=== PATIENT | male | born 1970 | race African-American/Black ===

== ENCOUNTER 2018-12-23 19:09 | Emergency (ER) | payer MEDICARE, MEDICAID ==
[~2018-12-23] VITALS: Ht 180.3 cm; Wt 68.0 kg
[2018-12-23 20:01] VITALS: BP 123/81
[2018-12-23 22:41] LABS: BASOPHILS % (AUTO) 0.6 % (0.0-2.0); EOSINOPHILS % (AUTO) 1.3 % (0.0-6.0); HEMATOCRIT 38 % (39-51); HEMOGLOBIN 12.9 g/dL (13.5-17.5); LYMPHOCYTES # (AUTO) 2.2 /CMM (0.8-4.8); LYMPHOCYTES % (AUTO) 46.7 % (20.0-44.0); MEAN CORPUSCULAR HGB CONC 34 g/dl (31.0-36.0); MEAN CORPUSCULAR VOLUME 95 fL (80-96); MONOCYTES # (AUTO) 0.6 /CMM (0.1-1.30); MONOCYTES % (AUTO) 12.4 % (2.0-12.0); NEUTROPHILS # (AUTO) 1.8 /CMM (1.8-8.9); PLATELET COUNT (AUTO) 278 /CMM (150-450); RED BLOOD CELL COUNT(AUTO) 4.02 MIL/uL (4.5-6.0); WHITE BLOOD COUNT (AUTO) 4.7 K/uL (4.3-11.0)
[2018-12-23 22:51] LABS: CALCIUM, SERUM 8.9 mg/dL (8.5-10.1); CARBON DIOXIDE 34 mmol/L (21-32); CHLORIDE 101 mmol/L (98-107); CREATININE 1.1 mg/dL (0.6-1.3); GLUCOSE 94 mg/dL (74-106); POTASSIUM 4.4 mmol/L (3.5-5.1); SODIUM SERUM 138 mmol/L (136-145); UREA NITROGEN, BLOOD 13 mg/dL (7-18)
[2018-12-23 22:55] LABS: ALANINE AMINOTRANSFERASE 23 U/L (12-78); ALBUMIN 3.2 g/dL (3.4-5.0); ALCOHOL, BLOOD < 3 mg/dL (0-0); ALKALINE PHOSPHATASE 88 U/L (46-116); ASPARTATE AMINOTRANSFERASE 23 U/L (15-37); BILIRUBIN,DIRECT 0.1 mg/dL (0.0-0.2); BILIRUBIN,TOTAL 0.2 mg/dL (0.2-1.0)
[2018-12-23 22:58] LABS: ACETAMINOPHEN < 10 ug/ml (10-30); SALICYLATE 2.3 mg/dL (2.8-20.0)
[2018-12-23 23:36] LABS: APPEARANCE,URINE Clear (CLEAR); BILIRUBIN,URINE Negative (NEGATIVE); BLOOD, URINE Trace-intact Ery/uL (NEGATIVE); COLOR,URINE Yellow (YELLOW); KETONES,URINE Trace (NEGATIVE); LEUKOCYTE ESTERASE ,URINE Negative (NEGATIVE); NITRITE, URINE Negative (NEGATIVE); PROTEIN,URINE 30 mg/dl (NEGATIVE); UGLUCOSE Negative (NEGATIVE); UROBILINOGEN,URINE 0.2 EU/dL (0.2)
[2018-12-23 23:52] LABS: BACTERIA,URINE None seen /HPF (None Seen); RBC,URINE 0-2 /HPF (0-2); SQUAMOUS EPITHELIAL CELL,UR Few /HPF (None Seen); WBC,URINE 0-2 /HPF (0-3)
--- NOTE | 2018-12-24 02:56 | NUR ---
[facility] ACCEPTING AFTER DISCHARGE AT 8AM. ACCEPTING DR. SHEIKH UNIT #2 CALL FOR REPORT [phone] EXT. [phone]
--- NOTE | 2018-12-24 06:16 | NUR ---
Patient eloped from facility. ER MD notified.
== END 2018-12-24 06:19 | disposition left against medical advice (07) ==
LOC: ER 19:21
DX: R45.851 Suicidal ideations (principal); F31.9 Bipolar disorder, unspecified; F41.9 Anxiety disorder, unspecified; F10.10 Alcohol abuse, uncomplicated; F17.210 Nicotine dependence, cigarettes, uncomplicated; F15.10 Other stimulant abuse, uncomplicated; F29 Unspecified psychosis not due to a substance or known physiological condition; F12.10 Cannabis abuse, uncomplicated; Y90.0 Blood alcohol level of less than 20 mg/100 ml
CPT/HCPCS: 36415; 80048; 80076; 80305; 80307; 80329; 81001; 85025; 99285; G0480; 81000-TC

== ENCOUNTER 2019-01-16 18:12 | Emergency (ER) | payer MEDICARE, MEDICAID ==
[~2019-01-16] VITALS: Ht 180.3 cm; Wt 67.1 kg
--- NOTE | 2019-01-16 19:15 | NUR ---
PT BIBSELF WITH SUICIDAL IDEATION, PLAN TO RUN INTO TRAFFIC. DENIES HI OR HALLUCINATIONS. PT AAOX4. RESPIRATIONS EVEN AND UNLABORED. SKIN INTACT. ABLE TO AMBULATE WITH STEADY GAIT. NO ACUTE DISTRESS NOTED AT THIS TIME. WILL CONTINUE TO MONITOR
[2019-01-16] MEDS ORDERED: ACETAMINOPHEN 325 MG TABLET ONE (19:25)
--- NOTE | 2019-01-16 19:26 | NUR ---
SHRINK PIT OPERATOR AT BEDSIDE FOR BLOOD DRAW
--- NOTE | 2019-01-16 19:28 | NUR ---
URINE COLLECTED AND SENT TO LAB
[2019-01-16] MEDS ORDERED: ACETAMINOPHEN 325 MG TABLET PO ONE (19:30)
[2019-01-16 19:32] LABS: BASOPHILS % (AUTO) 0.8 % (0.0-2.0); EOSINOPHILS % (AUTO) 1.4 % (0.0-6.0); HEMATOCRIT 38 % (39-51); HEMOGLOBIN 13.2 g/dL (13.5-17.5); LYMPHOCYTES # (AUTO) 1.4 /CMM (0.8-4.8); MEAN CORPUSCULAR HGB CONC 35 g/dl (31.0-36.0); MEAN CORPUSCULAR VOLUME 95 fL (80-96); MONOCYTES # (AUTO) 0.5 /CMM (0.1-1.30); MONOCYTES % (AUTO) 13.8 % (2.0-12.0); NEUTROPHILS # (AUTO) 1.4 /CMM (1.8-8.9); PLATELET COUNT (AUTO) 235 /CMM (150-450); RED BLOOD CELL COUNT(AUTO) 3.96 MIL/uL (4.5-6.0); WHITE BLOOD COUNT (AUTO) 3.3 K/uL (4.3-11.0)
[2019-01-16 19:38] LABS: CALCIUM, SERUM 8.5 mg/dL (8.5-10.1); CARBON DIOXIDE 31 mmol/L (21-32); CHLORIDE 104 mmol/L (98-107); CREATININE 1.1 mg/dL (0.6-1.3); GLUCOSE 83 mg/dL (74-106); POTASSIUM 3.5 mmol/L (3.5-5.1); SODIUM SERUM 141 mmol/L (136-145); UREA NITROGEN, BLOOD 9 mg/dL (7-18)
[2019-01-16 19:44] LABS: ALANINE AMINOTRANSFERASE 29 U/L (12-78); ALBUMIN 3.3 g/dL (3.4-5.0); ALCOHOL, BLOOD 8 mg/dL (0-0); ALKALINE PHOSPHATASE 88 U/L (46-116); ASPARTATE AMINOTRANSFERASE 25 U/L (15-37); BILIRUBIN,DIRECT 0.1 mg/dL (0.0-0.2); BILIRUBIN,TOTAL 0.2 mg/dL (0.2-1.0)
[2019-01-16 19:51] LABS: SALICYLATE 1.5 mg/dL (2.8-20.0)
[2019-01-16 19:54] LABS: ACETAMINOPHEN < 5 ug/ml (10-30)
[2019-01-16 20:07] LABS: APPEARANCE,URINE Clear (CLEAR); BILIRUBIN,URINE SMALL (NEGATIVE); BLOOD, URINE Negative Ery/uL (NEGATIVE); COLOR,URINE Yellow (YELLOW); KETONES,URINE 15 (NEGATIVE); LEUKOCYTE ESTERASE ,URINE Negative (NEGATIVE); NITRITE, URINE Negative (NEGATIVE); PROTEIN,URINE 30 mg/dl (NEGATIVE); UGLUCOSE Negative (NEGATIVE)
[2019-01-16 20:12] LABS: RBC,URINE 0-2 /HPF (0-2); WBC,URINE 0-2 /HPF (0-3)
[2019-01-16 20:13] LABS: BACTERIA,URINE Rare /HPF (None Seen); MUCUS,URINE Few /LPF (None Seen); SQUAMOUS EPITHELIAL CELL,UR Rare /HPF (None Seen); URINE AMORPHOUS URATE Few /HPF (None Seen)
--- NOTE | 2019-01-16 20:30 | NUR ---
CALLED [facility] PREVENTION SPECIALIST, ETA 1 HR.
--- NOTE | 2019-01-16 22:12 | NUR ---
CALLED [facility] FOR TRANSPORT ETA OF [phone] WAS GIVEN. TRIP#[id number]
--- NOTE | 2019-01-16 22:12 | NUR ---
PT ACCEPTED AT [facility] ADMITTING DIAGNOSIS: BIPOLAR DISORDER ADMITTING PSYCHIATRIST: DR. WILLIAMSON NUMBER FOR REPORT:
[2019-01-16 22:46] VITALS: BP 127/81
--- NOTE | 2019-01-16 22:47 | NUR ---
GAVE REPORT TO CARLY PRITCHARD FROM [facility] FOR JON
--- NOTE | 2019-01-16 23:07 | NUR ---
GAVE REPORT TO [place] [id number] FOR TRANSPORTATION JON
== END 2019-01-16 23:09 ==
LOC: ER 18:16
DX: R45.851 Suicidal ideations (principal); F31.9 Bipolar disorder, unspecified; F41.9 Anxiety disorder, unspecified; F15.90 Other stimulant use, unspecified, uncomplicated; F10.10 Alcohol abuse, uncomplicated; F17.210 Nicotine dependence, cigarettes, uncomplicated; Y90.0 Blood alcohol level of less than 20 mg/100 ml
CPT/HCPCS: 36415; 80048; 80076; 80164; 80305; 80307; 80329; 81001; 85025; 99285; G0480; 81000-TC

== ENCOUNTER 2020-01-12 01:54 | Emergency (ER) | payer MEDICARE, OTHER ==
[~2020-01-12] VITALS: Ht 180.3 cm; Wt 79.4 kg
--- NOTE | 2020-01-12 02:05 | NUR ---
PT DAVID FROM [facility] C/O SI "I WANT TO OD ON PILLS" PT IS AAOX4, NOT IN RESPIRATORY DISTRESS, V/S STABLE, KEPT RESTED AND COMFORTABLE, WILL CONTINUE TO MONITOR.
--- NOTE | 2020-01-12 02:09 | NUR ---
URINE SPECIMEN COLLECTED AND SENT TO LAB.
--- NOTE | 2020-01-12 02:10 | NUR ---
AT BEDSIDE FOR EVAL.
[2020-01-12 02:19] LABS: APPEARANCE,URINE Clear (CLEAR); BILIRUBIN,URINE Negative (NEGATIVE); BLOOD, URINE Negative Ery/uL (NEGATIVE); COLOR,URINE Yellow (YELLOW); KETONES,URINE Negative (NEGATIVE); LEUKOCYTE ESTERASE ,URINE Negative (NEGATIVE); NITRITE, URINE Negative (NEGATIVE); PH,URINE 5.5 (5.0-8.0); PROTEIN,URINE Negative (NEGATIVE); UGLUCOSE Negative (NEGATIVE); UROBILINOGEN,URINE 0.2 EU/dL (0.2)
--- NOTE | 2020-01-12 02:26 | NUR ---
PROCEDURE ANALYST AT BEDSIDE FOR LABS
[2020-01-12 02:37] LABS: CALCIUM, SERUM 8.7 mg/dL (8.5-10.1); CREATININE 1.1 mg/dL (0.6-1.3); POTASSIUM 4.2 mmol/L (3.5-5.1)
[2020-01-12 02:44] LABS: ALBUMIN 3.4 g/dL (3.4-5.0); BILIRUBIN,TOTAL 0.2 mg/dL (0.2-1.0); SALICYLATE 3.4 mg/dL (2.8-20.0); TOTAL PROTEIN, SERUM 7.3 g/dL (6.4-8.2)
[2020-01-12 02:58] LABS: BASOPHILS % (AUTO) 0.6 % (0.0-2.0); EOSINOPHILS % (AUTO) 1.2 % (0.0-6.0); HEMATOCRIT 39 % (39-51); HEMOGLOBIN 13.1 g/dL (13.5-17.5); LYMPHOCYTES # (AUTO) 2.3 /CMM (0.8-4.8); MEAN CORPUSCULAR HGB CONC 34 g/dl (31.0-36.0); MEAN CORPUSCULAR VOLUME 96 fL (80-96); MONOCYTES # (AUTO) 0.6 /CMM (0.1-1.30); MONOCYTES % (AUTO) 11.9 % (2.0-12.0); NEUTROPHILS # (AUTO) 1.8 /CMM (1.8-8.9); NEUTROPHILS % (AUTO) 37.3 % (43.0-81.0); PLATELET COUNT (AUTO) 204 /CMM (150-450); RED BLOOD CELL COUNT(AUTO) 4.03 MIL/uL (4.5-6.0); WHITE BLOOD COUNT (AUTO) 4.8 K/uL (4.3-11.0)
--- NOTE | 2020-01-12 03:26 | NUR ---
CLINICAL AND FACESHEET FAXED TO [facility] INTAKE FOR VOLUNTARY PSYCH ADMISSION.
--- NOTE | 2020-01-12 03:40 | NUR ---
PER [facility] ACCEPTED PSYCH REPORT UNIT [phone] ASK FOR UNIT 1
--- NOTE | 2020-01-12 03:45 | NUR ---
per Jolene Luciano eta is ~04:15
[2020-01-12 04:00] VITALS: BP 111/79
--- NOTE | 2020-01-12 04:13 | NUR ---
REPORT GIVEN TO TRANSFER. PT TRANSFERED TO [facility].
--- NOTE | 2020-01-12 04:13 | NUR ---
REPORT GIVEN TO EDYTA.
== END 2020-01-12 04:35 ==
LOC: ER 01:56
DX: R45.851 Suicidal ideations (principal); F41.9 Anxiety disorder, unspecified; F32.9 Major depressive disorder, single episode, unspecified; F17.210 Nicotine dependence, cigarettes, uncomplicated
CPT/HCPCS: 36415; 80048; 80076; 80164; 80305; 80307; 80329; 81001; 85025; 99285; G0480; 81000-TC

== ENCOUNTER 2022-08-20 00:30 | Inpatient (IN) | payer MEDICARE, OTHER ==
[~2022-08-20] VITALS: Ht 180.3 cm; Wt 77.1 kg
--- NOTE | 2022-08-20 04:31 | NUR ---
BIBS C/O SI WITH PLAN TO OD ON MEDS. REQUESTING MED CLEARANCE FOR VOLUNTARY PSYCH ADMISSION. PT AWAKE AND ALERT X4 NORMAL MOOD AND AFFECT, STEADY GAIT RR EVEN AND UNLABORED. PT CHANGED INTO GOWN AND BELONGINGS PLACED IN LOCKER. SAFETY MEASURES IN PLACE.
--- NOTE | 2022-08-20 04:35 | NUR ---
JUANITO COLLECTED AND SENT TO LAB
--- NOTE | 2022-08-20 04:35 | NUR ---
URINE COOLECTED AND SENT TO LAB
[2022-08-20 05:33] LABS: BASOPHILS % (AUTO) 0.1 % (0.0-2.0); EOSINOPHILS % (AUTO) 0.2 % (0.0-6.0); HEMATOCRIT 32 % (39-51); HEMOGLOBIN 10.5 g/dL (13.5-17.5); LYMPHOCYTES # (AUTO) 1.9 K/uL (0.8-4.8); LYMPHOCYTES % (AUTO) 10.7 % (20.0-44.0); MEAN CORPUSCULAR HGB CONC 33 g/dl (31.0-36.0); MEAN CORPUSCULAR VOLUME 93 fL (80-96); MONOCYTES # (AUTO) 2.2 K/uL (0.1-1.30); MONOCYTES % (AUTO) 12.5 % (2.0-12.0); NEUTROPHILS # (AUTO) 13.3 K/uL (1.8-8.9); NEUTROPHILS % (AUTO) 76.5 % (43.0-81.0); PLATELET COUNT (AUTO) 249 K/uL (150-450); WHITE BLOOD COUNT (AUTO) 17.4 K/uL (4.3-11.0)
[2022-08-20 05:34] LABS: BILIRUBIN,URINE NEGATIVE (NEGATIVE); COLOR,URINE YELLOW (YELLOW); LEUKOCYTE ESTERASE ,URINE NEGATIVE (NEGATIVE); NITRITE, URINE NEGATIVE (NEGATIVE); PH,URINE 5.5 (5.0-8.0); PROTEIN,URINE TRACE mg/dl (NEGATIVE); UGLUCOSE NEGATIVE (NEGATIVE); UROBILINOGEN,URINE 0.2 EU/dL (0.2)
[2022-08-20 05:37] LABS: BACTERIA,URINE Rare /HPF (None Seen); RBC,URINE 0-2 /HPF (0-2); SQUAMOUS EPITHELIAL CELL,UR Moderate /HPF (None Seen)
[2022-08-20 05:53] LABS: ALANINE AMINOTRANSFERASE 73 U/L (12-78); ALBUMIN 2.6 g/dL (3.4-5.0); ALCOHOL, BLOOD < 3 mg/dL (0-0); ALKALINE PHOSPHATASE 111 U/L (46-116); ASPARTATE AMINOTRANSFERASE 55 U/L (15-37); BILIRUBIN,DIRECT 0.1 mg/dL (0.0-0.2); BILIRUBIN,TOTAL 0.3 mg/dL (0.2-1.0); CALCIUM, SERUM 8.4 mg/dL (8.5-10.1); CARBON DIOXIDE 32 mmol/L (21-32); CHLORIDE 91 mmol/L (98-107); GLUCOSE 95 mg/dL (74-106); POTASSIUM 3.3 mmol/L (3.5-5.1); SODIUM SERUM 128 mmol/L (136-145); TOTAL PROTEIN, SERUM 7.8 g/dL (6.4-8.2); UREA NITROGEN, BLOOD 66 mg/dL (7-18)
[2022-08-20 05:58] LABS: ACETAMINOPHEN 0 ug/ml (10-30)
--- NOTE | 2022-08-20 07:52 | NUR ---
COVID NEGATIVE PER LAB
--- NOTE | 2022-08-20 08:30 | NUR ---
CLINICALS FAXED TO [facility] INTAKE.
[2022-08-20] MEDS ORDERED: IV NS 0.9% 1,000 ML IV ONE ×2 (09:00)
[2022-08-20 11:33] LABS: BASOPHILS % (AUTO) 0.1 % (0.0-2.0); EOSINOPHILS % (AUTO) 0.2 % (0.0-6.0); HEMATOCRIT 27 % (39-51); HEMOGLOBIN 9.2 g/dL (13.5-17.5); LYMPHOCYTES # (AUTO) 1.6 K/uL (0.8-4.8); MEAN CORPUSCULAR HGB CONC 34 g/dl (31.0-36.0); MEAN CORPUSCULAR VOLUME 92 fL (80-96); MONOCYTES # (AUTO) 1.4 K/uL (0.1-1.30); NEUTROPHILS # (AUTO) 10.7 K/uL (1.8-8.9); NEUTROPHILS % (AUTO) 77.7 % (43.0-81.0); PLATELET COUNT (AUTO) 218 K/uL (150-450); RED BLOOD CELL COUNT(AUTO) 2.95 MIL/uL (4.5-6.0); WHITE BLOOD COUNT (AUTO) 13.7 K/uL (4.3-11.0)
[2022-08-20 11:43] LABS: CALCIUM, SERUM 7.3 mg/dL (8.5-10.1); CREATININE 2.2 mg/dL (0.6-1.3); POTASSIUM 3.1 mmol/L (3.5-5.1)
[2022-08-20] MEDS ORDERED: POTASSIUM CHLORIDE 20 MEQ TAB.PRT.SR PO ONE ×2 (15:00→15:03)
--- NOTE | 2022-08-20 15:15 | NUR ---
MOVE SHEET SUBMITTED.
--- NOTE | 2022-08-20 15:29 | NUR ---
[facility] CALLED VENDING ROUTE SERVICER PAGED.
--- NOTE | 2022-08-20 16:06 | NUR ---
[facility] CALLED LADDERMAN PAGED.
--- NOTE | 2022-08-20 17:57 | NUR ---
ROOM [id number]
--- NOTE | 2022-08-20 18:03 | NUR ---
ERMA RN FOR REPORT
--- NOTE | 2022-08-20 18:07 | NUR ---
PT REPORT GIVEN TO FRANCHESKA RITCHIE
[2022-08-20] MEDS ORDERED: MAG HYDROX/AL HYDROX/SIMETH 30 ML UDC PO PRN (18:30)
[2022-08-20] MEDS ORDERED: ZOLPIDEM TARTRATE 5 MG TABLET PO PRN (18:30)
[2022-08-20] MEDS ORDERED: MAGNESIUM HYDROXIDE 30 ML UDC PO PRN (18:30)
[2022-08-20] MEDS ORDERED: Z GUARD REMEDY 4 OZ OINT TP PRN (18:30)
[2022-08-20] MEDS ORDERED: ACETAMINOPHEN 325 MG TABLET PO PRN (18:30)
[2022-08-20] MEDS ORDERED: ONDANSETRON HCL/PF 4 MG/2 ML VIAL IVP PRN (18:30)
--- NOTE | 2022-08-20 19:30 | NUR ---
PT BEING TRANSPORTED TO [facility] VIA ACLS PROTOCOL
[2022-08-20 20:00] VITALS: BP 101/51
[2022-08-20] MEDS: IV NS 0.9% 1,000 ML IV PRN (20:24)
[2022-08-21] MEDS: IV NS 0.9% 1,000 ML IV PRN (05:05)
--- NOTE | 2022-08-21 05:53 | NUR ---
closing notes: alert and orientated X4 pleasent and cooperative stated no pain thru the night using the urinal and voids 300 to 200 ml each time clear yellow noted he is drinking water excessively 800 ml this 10 hours stated no thoughts of suicide "I have my son something to live for" psych consult ordered by the
[2022-08-21 07:08] LABS: BASOPHILS % (AUTO) 0.1 % (0.0-2.0); EOSINOPHILS % (AUTO) 0.2 % (0.0-6.0); HEMATOCRIT 28 % (39-51); HEMOGLOBIN 9.3 g/dL (13.5-17.5); LYMPHOCYTES # (AUTO) 1.3 K/uL (0.8-4.8); LYMPHOCYTES % (AUTO) 12.6 % (20.0-44.0); MEAN CORPUSCULAR HGB CONC 34 g/dl (31.0-36.0); MEAN CORPUSCULAR VOLUME 92 fL (80-96); MONOCYTES # (AUTO) 1.1 K/uL (0.1-1.30); MONOCYTES % (AUTO) 10.5 % (2.0-12.0); NEUTROPHILS # (AUTO) 7.8 K/uL (1.8-8.9); NEUTROPHILS % (AUTO) 76.6 % (43.0-81.0); PLATELET COUNT (AUTO) 260 K/uL (150-450); RED BLOOD CELL COUNT(AUTO) 2.99 MIL/uL (4.5-6.0); WHITE BLOOD COUNT (AUTO) 10.2 K/uL (4.3-11.0)
--- NOTE | 2022-08-21 07:30 | NUR ---
RN OPENING NOTE PATIENT RECEIVED IN BED AND AWAKE. A/O X4 AND ABLE TO VERBALIZE NEEDS. IV ACCES TO LFA INTACT AND PATENT. NO C/O PAIN OR S/SX OF DISTRESS OBSERVED. SAFETY MEASURES IN TACT WITH BED LOW AND LOCKED AND SIDERAIL UP X2. CALL LIGHT WITHIN REACH. WILL CONT TO MONITOR.
[2022-08-21 07:55] LABS: CARBON DIOXIDE 29 mmol/L (21-32); CREATININE 1.6 mg/dL (0.6-1.3); GLUCOSE 88 mg/dL (74-106); POTASSIUM 3.7 mmol/L (3.5-5.1); SODIUM SERUM 139 mmol/L (136-145); UREA NITROGEN, BLOOD 32 mg/dL (7-18)
[2022-08-21 08:19] VITALS: BP 114/87
[2022-08-21] MEDS: NICOTINE PATCH (21MG) 21 MG PATCH.TD24 TD SCH (08:42)
[2022-08-21] MEDS: PANTOPRAZOLE 40 MG TABLET.DR PO SCH (08:42)
[2022-08-21 09:06] LABS: THYROID STIMULATING HORMONE 0.284 uIU/mL (0.358-3.74)
[2022-08-21] MEDS ORDERED: K PHOS NEUTRAL 250 MG TABLET PO ONE (11:00)
[2022-08-21] MEDS ORDERED: LEVOFLOXACIN (250MG) 250 MG TABLET PO SCH (12:00)
[2022-08-21 16:02] VITALS: BP 112/87
--- NOTE | 2022-08-21 18:41 | NUR ---
RN CLOSING NOTE PATIENT REMAINED STABLE, A/O X4, AND ABLE TO VERBALIZE NEEDS THROUGHOUT SHIFT. NO S/SX OF PAIN OR DISTRESS. TOLERATED ALL MEALS AND ADMINISTERED MEDICATIONS WELL. IV ACCESS REMAINS INTACT AND PATENT WITH NS RUNNING CONTINUOUSLY @ 100ML/HR. SAFETY MEASURES REMAIN INTACT WITH BED LOW AND LOCKED CALL LIGHT WITHIN REACH. WILL CONT TO MONITOR.
--- NOTE | 2022-08-21 19:41 | NUR ---
RN OPENING NOTE PATIENT RECEIVED IN BED AA/O X4 ABLE TO MAKE NEEDS KNOWN,DES WELL ON RM AIR,NO SIGN SOB/DISTRESS NOTED,NO COMPLAIN OF PAIN/DISCOMFORT AT THIS TIME, IV ACCES TO LFA INTACT AND PATENT.SAFETY MEASURES IN PLACE WITH BED LOW AND LOCKED AND SIDERAIL UP X2. CALL LIGHT WITHIN REACH. WILL CONTINUE TO MONITOR.
[2022-08-21 20:00] VITALS: BP 105/43
[2022-08-22 06:17] LABS: BASOPHILS % (AUTO) 0.2 % (0.0-2.0); EOSINOPHILS % (AUTO) 0.3 % (0.0-6.0); HEMATOCRIT 29 % (39-51); LYMPHOCYTES # (AUTO) 1.5 K/uL (0.8-4.8); MEAN CORPUSCULAR HGB CONC 35 g/dl (31.0-36.0); MEAN CORPUSCULAR VOLUME 92 fL (80-96); MONOCYTES # (AUTO) 0.9 K/uL (0.1-1.30); MONOCYTES % (AUTO) 14.4 % (2.0-12.0); NEUTROPHILS % (AUTO) 62.1 % (43.0-81.0); PLATELET COUNT (AUTO) 284 K/uL (150-450); RED BLOOD CELL COUNT(AUTO) 3.12 MIL/uL (4.5-6.0); WHITE BLOOD COUNT (AUTO) 6.5 K/uL (4.3-11.0)
--- NOTE | 2022-08-22 06:27 | NUR ---
RN closing note; PATIENT IN BED AA/O X4 ABLE TO MAKE NEEDS KNOWN,DES WELL ON RM AIR,NO SIGN SOB/DISTRESS NOTED,NO COMPLAIN OF PAIN/DISCOMFORT DURING SHIFT,DUE MEDS GIVEN ORDER,ALL NEEDS ATTENDED, IV ACCES TO LFA INTACT AND PATENT.SAFETY MEASURES IN PLACE WITH BED LOW AND LOCKED AND SIDERAIL UP X2. CALL LIGHT WITHIN REACH. WILL ENDORSED TO NEXT SHIFT.
[2022-08-22 06:55] LABS: CREATININE 1.4 mg/dL (0.6-1.3); MAGNESIUM 1.6 mg/dL (1.8-2.4); PHOSPHORUS 2.7 mg/dL (2.5-4.9); POTASSIUM 3.5 mmol/L (3.5-5.1)
[2022-08-22 08:00] VITALS: BP 115/64
--- NOTE | 2022-08-22 08:45 | NUR ---
SS consult received on 08/21/2022 for homelessness, SW will follow up at a later time.
[2022-08-22] MEDS: PANTOPRAZOLE 40 MG TABLET.DR PO SCH (08:54)
[2022-08-22] MEDS: NICOTINE PATCH (21MG) 21 MG PATCH.TD24 TD SCH (08:54)
[2022-08-22] MEDS: Magnesium 1GM/D5W 100ML PREMIX 100 ML IV SCH ×2 (11:10→11:58)
[2022-08-22 11:31] LABS: BAND % (MANUAL) 4 % (0.0-5.0); LYMPHOCYTES % (MANUAL) 20 % (16-48); METAMYELOCYTES % 1 % (0-0); MONOCYTES % (MANUAL) 10 % (0-11.0); MYELOCYTES % 1 % (0-0); NEUTROPHILS % (MANUAL) 64 (42-76)
[2022-08-22] MEDS ORDERED: LEVO250T59 PO (12:33)
--- NOTE | 2022-08-22 14:50 | NUR ---
DIAMOND POWDER MIXER NOTE PATIENT DISCHARGED FROM FACILITY @ 1450. ESCORTED TO HOSPITAL EXIT AND GIVEN TAP CARD FOR TRANSPORT ASSISTANCE. ALL BELONGINGS TAKEN WITH PATIENT. IV ACCESS REMOVED.
--- NOTE | 2022-08-22 15:45 | NUR ---
SW attempted to meet with pt., however, pt. has departed.
== END 2022-08-22 14:50 | disposition home or self-care (01) | DRG 682 ==
LOC: ER 00:33 → MED 18:03
PROVIDERS: ADMIT Student in an Organized Health Care Education/Training Program; ATTEND Student in an Organized Health Care Education/Training Program
DX: N17.0 Acute kidney failure with tubular necrosis (principal); J18.9 Pneumonia, unspecified organism; E44.0 Moderate protein-calorie malnutrition; E87.1 Hypo-osmolality and hyponatremia; D64.9 Anemia, unspecified; E87.6 Hypokalemia; E88.09 Other disorders of plasma-protein metabolism, not elsewhere classified; F17.210 Nicotine dependence, cigarettes, uncomplicated; F31.9 Bipolar disorder, unspecified; F41.9 Anxiety disorder, unspecified; N32.89 Other specified disorders of bladder; Z83.3 Family history of diabetes mellitus
CPT/HCPCS: 36415; 71045-TC; 76770-TC; 80048-TC; 80076-TC; 81001; 83735-TC; 84100-TC; 84443-TC; 85025-TC; 87081-TC; 87086-TC; C9803; G0378; G0480; J3475; J7030

== ENCOUNTER 2023-01-14 23:18 | Emergency (ER) | payer BC, OTHER ==
[~2023-01-14] VITALS: Ht 180.3 cm; Wt 69.4 kg
[~2023-01-14 23:18] MED LIST: LEVO250T59 PO
--- NOTE | 2023-01-14 23:51 | NUR ---
BROUGHT TO CT DEPT
--- NOTE | 2023-01-14 23:51 | NUR ---
URINE SPECIMEN SENT TO LAB
[2023-01-14] MEDS ORDERED: KETOROLAC TROMETHAMINE 15 MG/ML VIAL ONE (23:52)
[2023-01-15] MEDS ORDERED: IV NS 0.9% 1,000 ML BAG IV ONE
[2023-01-15] MEDS ORDERED: KETOROLAC TROMETHAMINE INJ 30 MG/ML VIAL IV ONE
--- NOTE | 2023-01-15 00:05 | NUR ---
PT RETURNED FROM RADIOLOGY
--- NOTE | 2023-01-15 00:08 | NUR ---
18GA TO LAC ESTABLISHED
--- NOTE | 2023-01-15 00:08 | NUR ---
BLOOD WORK COLLECTED AND SENT TO LAB
[2023-01-15 00:35] LABS: CALCIUM, SERUM 8.6 mg/dL (8.5-10.1); CREATININE 1.4 mg/dL (0.6-1.3); POTASSIUM 4.2 mmol/L (3.5-5.1)
[2023-01-15 00:37] LABS: BILIRUBIN,URINE NEGATIVE (NEGATIVE); COLOR,URINE YELLOW (YELLOW); LEUKOCYTE ESTERASE ,URINE NEGATIVE (NEGATIVE); NITRITE, URINE NEGATIVE (NEGATIVE); PROTEIN,URINE NEGATIVE (NEGATIVE); UGLUCOSE NEGATIVE (NEGATIVE); UROBILINOGEN,URINE 0.2 EU/dL (0.2)
[2023-01-15 00:40] LABS: ALBUMIN 3.8 g/dL (3.4-5.0); BILIRUBIN,DIRECT 0.1 mg/dL (0.0-0.2); BILIRUBIN,TOTAL 0.5 mg/dL (0.2-1.0); TOTAL PROTEIN, SERUM 7.1 g/dL (6.4-8.2)
[2023-01-15 00:42] LABS: BASOPHILS % (AUTO) 0.6 % (0.0-2.0); HEMATOCRIT 33 % (39-51); HEMOGLOBIN 11.4 g/dL (13.5-17.5); LYMPHOCYTES # (AUTO) 1.9 K/uL (0.8-4.8); MEAN CORPUSCULAR HGB CONC 35 g/dl (31.0-36.0); MEAN CORPUSCULAR VOLUME 89 fL (80-96); MONOCYTES # (AUTO) 0.7 K/uL (0.1-1.30); MONOCYTES % (AUTO) 17.7 % (2.0-12.0); NEUTROPHILS # (AUTO) 1.3 K/uL (1.8-8.9); NEUTROPHILS % (AUTO) 33.7 % (43.0-81.0); PLATELET COUNT (AUTO) 235 K/uL (150-450)
--- NOTE | 2023-01-15 05:34 | NUR ---
COVID SWAB COLLECTED AND SENT TO LAB.
[2023-01-15 05:58] LABS: ALCOHOL, BLOOD < 3 mg/dL (0-0)
[2023-01-15 06:07] LABS: ACETAMINOPHEN 0 ug/ml (10-30)
--- NOTE | 2023-01-15 11:59 | NUR ---
FAXED CLINICALS TO [facility].
--- NOTE | 2023-01-15 15:56 | NUR ---
FAXED UDS TO [facility].
[2023-01-15 16:15] VITALS: BP 138/80
--- NOTE | 2023-01-15 16:29 | NUR ---
PT ACCEPTED TO [facility] UNDER DR. ALVARADO. PLEASE CALL [phone] FOR REPORT. WILL CALL WITH ETA OF RUNNER WORKER.
--- NOTE | 2023-01-15 16:43 | NUR ---
RE[facility]
[2023-01-15 16:46] LABS: BILIRUBIN,URINE NEGATIVE (NEGATIVE); COLOR,URINE YELLOW (YELLOW); LEUKOCYTE ESTERASE ,URINE NEGATIVE (NEGATIVE); NITRITE, URINE NEGATIVE (NEGATIVE); PROTEIN,URINE TRACE mg/dl (NEGATIVE); UGLUCOSE NEGATIVE (NEGATIVE)
[2023-01-15 17:40] LABS: BACTERIA,URINE None seen /HPF (None Seen); MUCUS,URINE Few /LPF (None Seen); RBC,URINE 0-2 /HPF (0-2); SQUAMOUS EPITHELIAL CELL,UR 0-2 /HPF (None Seen); WBC,URINE 0-2 /HPF (0-3)
--- NOTE | 2023-01-15 18:02 | NUR ---
PICKED UP BY [facility]. STABLE CONDITION.
== END 2023-01-15 18:03 ==
LOC: ER 23:28
DX: R45.851 Suicidal ideations (principal); R10.9 Unspecified abdominal pain; F17.200 Nicotine dependence, unspecified, uncomplicated; Z79.899 Other long term (current) drug therapy; Z20.822 Contact with and (suspected) exposure to COVID-19
CPT/HCPCS: 99285; 74176; 36415; 96374; 96361; 85025; 80048; 83690; 80076; 81001; 81003; 87426; 80143; 80320; 80307; J7030; J1885; C9803; G0480

== ENCOUNTER 2023-01-30 17:28 | Emergency (ER) | payer BC, OTHER ==
[~2023-01-30] VITALS: Ht 180.3 cm; Wt 77.1 kg
--- NOTE | 2023-01-30 18:21 | NUR ---
URINE SAMPLE OBTAINED
[2023-01-30 18:36] VITALS: BP 122/71
[2023-01-30 18:36] LABS: BASOPHILS % (AUTO) 0.2 % (0.0-2.0); HEMATOCRIT 34 % (39-51); HEMOGLOBIN 11.1 g/dL (13.5-17.5); LYMPHOCYTES # (AUTO) 2.1 K/uL (0.8-4.8); LYMPHOCYTES % (AUTO) 27.4 % (20.0-44.0); MEAN CORPUSCULAR HGB CONC 33 g/dl (31.0-36.0); MEAN CORPUSCULAR VOLUME 93 fL (80-96); MONOCYTES # (AUTO) 0.7 K/uL (0.1-1.30); MONOCYTES % (AUTO) 9.1 % (2.0-12.0); NEUTROPHILS # (AUTO) 4.8 K/uL (1.8-8.9); NEUTROPHILS % (AUTO) 62.3 % (43.0-81.0); PLATELET COUNT (AUTO) 249 K/uL (150-450); RED BLOOD CELL COUNT(AUTO) 3.62 MIL/uL (4.5-6.0); WHITE BLOOD COUNT (AUTO) 7.7 K/uL (4.3-11.0)
[2023-01-30 18:43] LABS: BILIRUBIN,URINE NEGATIVE (NEGATIVE); COLOR,URINE YELLOW (YELLOW); LEUKOCYTE ESTERASE ,URINE NEGATIVE (NEGATIVE); NITRITE, URINE NEGATIVE (NEGATIVE); PROTEIN,URINE NEGATIVE (NEGATIVE); UGLUCOSE NEGATIVE (NEGATIVE); UROBILINOGEN,URINE 0.2 EU/dL (0.2)
[2023-01-30 18:54] LABS: CALCIUM, SERUM 8.8 mg/dL (8.5-10.1); CARBON DIOXIDE 31 mmol/L (21-32); CHLORIDE 101 mmol/L (98-107); CREATININE 1.2 mg/dL (0.6-1.3); GLUCOSE 104 mg/dL (74-106); POTASSIUM 3.1 mmol/L (3.5-5.1); SODIUM SERUM 138 mmol/L (136-145); UREA NITROGEN, BLOOD 11 mg/dL (7-18)
[2023-01-30 18:59] LABS: ALANINE AMINOTRANSFERASE 19 U/L (12-78); ALBUMIN 3.3 g/dL (3.4-5.0); ALKALINE PHOSPHATASE 87 U/L (46-116); ASPARTATE AMINOTRANSFERASE 14 U/L (15-37); BILIRUBIN,DIRECT 0.1 mg/dL (0.0-0.2); BILIRUBIN,TOTAL 0.3 mg/dL (0.2-1.0); TOTAL PROTEIN, SERUM 7.2 g/dL (6.4-8.2)
[2023-01-30 19:00] LABS: ACETAMINOPHEN < 10 ug/ml (10-30); ALCOHOL, BLOOD < 3 mg/dL (0-0)
--- NOTE | 2023-01-30 22:02 | NUR ---
FAXED CLINICALS TO [facility]
--- NOTE | 2023-01-31 04:44 | NUR ---
REPORT GIVEN TO HU PRITCHARD FROM [facility] FOR JON
--- NOTE | 2023-01-31 04:54 | NUR ---
PT ACCEPTED TO [facility] TO ROOM 108A
--- NOTE | 2023-01-31 05:01 | NUR ---
[facility] CALLED TRANSPORTATION ETA AT 5150
--- NOTE | 2023-01-31 06:38 | NUR ---
REC'D A CALL FROM CARLINE AT [facility] INTAKE. HE WILL PROVIDE THE TRANSPORTATION. CALLED [facility] AND CANCELED THE AMBULANCE TRANSPORTATION.
--- NOTE | 2023-01-31 06:56 | NUR ---
CARLINE FROM [facility] TRANSPORTING PT TO [facility] VIA PRIVATE TRANSPORTATION. ALL BELONGINGS WITH PT.
== END 2023-01-31 06:59 ==
LOC: ER 17:34
DX: R45.851 Suicidal ideations (principal); F17.200 Nicotine dependence, unspecified, uncomplicated; Z79.899 Other long term (current) drug therapy; Z20.822 Contact with and (suspected) exposure to COVID-19
CPT/HCPCS: 36415; 80048-TC; 80076-TC; 85025-TC; C9803; G0480

== ENCOUNTER 2023-02-07 01:24 | Emergency (ER) | payer BC, OTHER ==
[~2023-02-07] VITALS: Ht 180.3 cm; Wt 77.1 kg
--- NOTE | 2023-02-07 01:40 | NUR ---
BIBS FOR SI, PLANNING TO OD ON HIS PILLS. REQUESTING VOLUNTARY PSYCH ADMISSION. PT IS AAOX3. AMBULATORY WITH STEADY GAITS TO THE BATHROOM, URINE SAMPLE COLLECTED, COVID SWAB DONE. PT WAS GOWNED UP, BELONGINGS TAKEN AWAY, SI PRECAUTION IMPLEMENTED. VITAL SIGNS STABLE. CONTINUE TO MONITOR.
[2023-02-07 03:23] LABS: BASOPHILS % (AUTO) 0.5 % (0.0-2.0); EOSINOPHILS % (AUTO) 1.9 % (0.0-6.0); HEMATOCRIT 37 % (39-51); HEMOGLOBIN 12.6 g/dL (13.5-17.5); LYMPHOCYTES # (AUTO) 2.6 K/uL (0.8-4.8); LYMPHOCYTES % (AUTO) 51.4 % (20.0-44.0); MEAN CORPUSCULAR HGB CONC 34 g/dl (31.0-36.0); MEAN CORPUSCULAR VOLUME 91 fL (80-96); MONOCYTES # (AUTO) 0.6 K/uL (0.1-1.30); MONOCYTES % (AUTO) 11.2 % (2.0-12.0); NEUTROPHILS # (AUTO) 1.8 K/uL (1.8-8.9); PLATELET COUNT (AUTO) 307 K/uL (150-450); RED BLOOD CELL COUNT(AUTO) 4.02 MIL/uL (4.5-6.0); WHITE BLOOD COUNT (AUTO) 5.1 K/uL (4.3-11.0)
[2023-02-07 03:41] LABS: ALANINE AMINOTRANSFERASE 19 U/L (12-78); ALBUMIN 3.6 g/dL (3.4-5.0); ALKALINE PHOSPHATASE 82 U/L (46-116); ASPARTATE AMINOTRANSFERASE 12 U/L (15-37); BILIRUBIN,TOTAL 0.1 mg/dL (0.2-1.0); CALCIUM, SERUM 9.7 mg/dL (8.5-10.1); CARBON DIOXIDE 34 mmol/L (21-32); CHLORIDE 101 mmol/L (98-107); CREATININE 1.2 mg/dL (0.6-1.3); GLUCOSE 106 mg/dL (74-106); POTASSIUM 4.2 mmol/L (3.5-5.1); SODIUM SERUM 140 mmol/L (136-145); TOTAL PROTEIN, SERUM 7.3 g/dL (6.4-8.2); UREA NITROGEN, BLOOD 15 mg/dL (7-18)
[2023-02-07 03:45] LABS: ALCOHOL, BLOOD < 3 mg/dL (0-0)
[2023-02-07 03:48] LABS: BILIRUBIN,URINE NEGATIVE (NEGATIVE); COLOR,URINE YELLOW (YELLOW); LEUKOCYTE ESTERASE ,URINE NEGATIVE (NEGATIVE); NITRITE, URINE NEGATIVE (NEGATIVE); PROTEIN,URINE NEGATIVE (NEGATIVE); UGLUCOSE NEGATIVE (NEGATIVE); UROBILINOGEN,URINE 0.2 EU/dL (0.2)
--- NOTE | 2023-02-07 04:44 | NUR ---
FACESHEET AND CLINICALS FAXED TO [facility].
--- NOTE | 2023-02-07 08:15 | NUR ---
pt requested to be discharged. states feeling much better and is no longer suicidal. reevaluated by dr pickering. d/c from ed in stable condition.
[2023-02-07 08:17] VITALS: BP 115/82
== END 2023-02-07 08:18 | disposition home or self-care (01) ==
LOC: ER 01:27
DX: R45.851 Suicidal ideations (principal); F17.200 Nicotine dependence, unspecified, uncomplicated; Z20.822 Contact with and (suspected) exposure to COVID-19
CPT/HCPCS: 36415; 80048-TC; 80076-TC; 85025-TC; C9803; G0480

== ENCOUNTER 2023-02-25 23:35 | Emergency (ER) | payer BC, OTHER ==
--- NOTE | 2023-02-26 00:21 | NUR ---
called for triage not in the waiting room.
--- NOTE | 2023-02-26 00:33 | NUR ---
called for triage not in the waiting room.
--- NOTE | 2023-02-26 00:49 | NUR ---
called for triage not in the waiting room
== END 2023-02-26 00:55 | disposition left against medical advice (07) ==
LOC: ER 23:43
DX: Z53.21 Procedure and treatment not carried out due to patient leaving prior to being seen by health care provider (principal)

== ENCOUNTER 2023-02-26 03:38 | Emergency (ER) | payer BC, OTHER ==
[~2023-02-26] VITALS: Ht 177.8 cm; Wt 77.1 kg
[2023-02-26 04:19] LABS: BILIRUBIN,URINE NEGATIVE (NEGATIVE); COLOR,URINE YELLOW (YELLOW); LEUKOCYTE ESTERASE ,URINE NEGATIVE (NEGATIVE); NITRITE, URINE NEGATIVE (NEGATIVE); PROTEIN,URINE TRACE mg/dl (NEGATIVE); UGLUCOSE NEGATIVE (NEGATIVE); UROBILINOGEN,URINE 0.2 EU/dL (0.2)
[2023-02-26 04:20] LABS: BASOPHILS % (AUTO) 0.8 % (0.0-2.0); EOSINOPHILS % (AUTO) 2.3 % (0.0-6.0); HEMATOCRIT 39 % (39-51); HEMOGLOBIN 13.5 g/dL (13.5-17.5); LYMPHOCYTES # (AUTO) 2.4 K/uL (0.8-4.8); LYMPHOCYTES % (AUTO) 47.6 % (20.0-44.0); MEAN CORPUSCULAR HGB CONC 34 g/dl (31.0-36.0); MEAN CORPUSCULAR VOLUME 92 fL (80-96); MONOCYTES # (AUTO) 0.9 K/uL (0.1-1.30); MONOCYTES % (AUTO) 17.8 % (2.0-12.0); NEUTROPHILS # (AUTO) 1.6 K/uL (1.8-8.9); NEUTROPHILS % (AUTO) 31.5 % (43.0-81.0); PLATELET COUNT (AUTO) 247 K/uL (150-450); RED BLOOD CELL COUNT(AUTO) 4.29 MIL/uL (4.5-6.0)
[2023-02-26 04:35] LABS: BACTERIA,URINE Rare /HPF (None Seen); RBC,URINE 0-2 /HPF (0-2); SQUAMOUS EPITHELIAL CELL,UR Few /HPF (None Seen); WBC,URINE 0-2 /HPF (0-3)
[2023-02-26 04:38] LABS: ALANINE AMINOTRANSFERASE 33 U/L (12-78); ALBUMIN 3.5 g/dL (3.4-5.0); ALCOHOL, BLOOD < 3 mg/dL (0-0); ALKALINE PHOSPHATASE 68 U/L (46-116); ASPARTATE AMINOTRANSFERASE 22 U/L (15-37); BILIRUBIN,DIRECT 0.1 mg/dL (0.0-0.2); BILIRUBIN,TOTAL 0.4 mg/dL (0.2-1.0); CALCIUM, SERUM 8.9 mg/dL (8.5-10.1); CARBON DIOXIDE 33 mmol/L (21-32); CHLORIDE 105 mmol/L (98-107); CREATININE 1.2 mg/dL (0.6-1.3); GLUCOSE 90 mg/dL (74-106); POTASSIUM 3.9 mmol/L (3.5-5.1); SODIUM SERUM 142 mmol/L (136-145); TOTAL PROTEIN, SERUM 6.7 g/dL (6.4-8.2); UREA NITROGEN, BLOOD 18 mg/dL (7-18)
--- NOTE | 2023-02-26 06:45 | NUR ---
FACESHEET AND CLINICALS FAXED TO [facility].
--- NOTE | 2023-02-26 10:05 | NUR ---
PT ACCEPTED TO [facility] UNDER DR. MOSQUEDA. PLEASE CALL [phone]. [facility] CALLED FOR TRANSPORT ETA 1200.
--- NOTE | 2023-02-26 10:28 | NUR ---
PATIENT REFUSED TRANSPORT TO [facility] DANNY HERNANDEZ MD MADE AWARE
--- NOTE | 2023-02-26 10:37 | NUR ---
Patient discharged to home in stable condition. Written and verbal after care instructions given. Patient verbalizes understanding of instruction.
[2023-02-26 10:38] VITALS: BP 143/79
== END 2023-02-26 10:38 | disposition home or self-care (01) ==
LOC: ER 03:41
DX: R45.851 Suicidal ideations (principal); F32.A Depression, unspecified; F17.200 Nicotine dependence, unspecified, uncomplicated; Z79.899 Other long term (current) drug therapy; Z20.822 Contact with and (suspected) exposure to COVID-19
CPT/HCPCS: 36415; 80048-TC; 80076-TC; 81001; 85025-TC; C9803; G0480

== ENCOUNTER 2023-03-11 02:37 | Emergency (ER) | payer BC, OTHER ==
[~2023-03-11] VITALS: Ht 177.8 cm; Wt 86.2 kg
--- NOTE | 2023-03-11 03:03 | NUR ---
BIBS FOR MEDICAL CLEARANCE FOR VOL PSYCH TO [facility]. PT AAO X 4, BREATHING UNLABORED. PT CHANGED TO HOSP GOWN, BELONGINGS SECURED AND PLACED IN LOCKER. KEPT COMFORTABLE. WILL MONITOR.
--- NOTE | 2023-03-11 04:30 | NUR ---
URINE SPECIMEN COLLECTED AND SENT TO LAB.
--- NOTE | 2023-03-11 04:30 | NUR ---
COVID SWAB COLLECTED AND SENT TO LAB.
[2023-03-11 05:05] LABS: CALCIUM, SERUM 8.5 mg/dL (8.5-10.1); CARBON DIOXIDE 29 mmol/L (21-32); CHLORIDE 105 mmol/L (98-107); GLUCOSE 94 mg/dL (74-106); POTASSIUM 3.9 mmol/L (3.5-5.1); SODIUM SERUM 141 mmol/L (136-145); UREA NITROGEN, BLOOD 7 mg/dL (7-18)
[2023-03-11 05:05] LABS: BILIRUBIN,URINE 1+ (NEGATIVE); COLOR,URINE YELLOW (YELLOW); LEUKOCYTE ESTERASE ,URINE NEGATIVE (NEGATIVE); NITRITE, URINE NEGATIVE (NEGATIVE); PROTEIN,URINE TRACE mg/dl (NEGATIVE); UGLUCOSE NEGATIVE (NEGATIVE)
[2023-03-11 05:06] LABS: BASOPHILS % (AUTO) 0.9 % (0.0-2.0); EOSINOPHILS % (AUTO) 3.1 % (0.0-6.0); HEMATOCRIT 40 % (39-51); HEMOGLOBIN 13.3 g/dL (13.5-17.5); LYMPHOCYTES # (AUTO) 2.8 K/uL (0.8-4.8); LYMPHOCYTES % (AUTO) 57.1 % (20.0-44.0); MEAN CORPUSCULAR HGB CONC 34 g/dl (31.0-36.0); MEAN CORPUSCULAR VOLUME 91 fL (80-96); MONOCYTES # (AUTO) 0.6 K/uL (0.1-1.30); MONOCYTES % (AUTO) 12.3 % (2.0-12.0); NEUTROPHILS # (AUTO) 1.3 K/uL (1.8-8.9); NEUTROPHILS % (AUTO) 26.6 % (43.0-81.0); PLATELET COUNT (AUTO) 213 K/uL (150-450); RED BLOOD CELL COUNT(AUTO) 4.33 MIL/uL (4.5-6.0)
[2023-03-11 05:10] LABS: ALANINE AMINOTRANSFERASE 27 U/L (12-78); ALBUMIN 3.3 g/dL (3.4-5.0); ALCOHOL, BLOOD < 3 mg/dL (0-10); ALKALINE PHOSPHATASE 70 U/L (46-116); ASPARTATE AMINOTRANSFERASE 16 U/L (15-37); BILIRUBIN,DIRECT 0.1 mg/dL (0.0-0.2); BILIRUBIN,TOTAL 0.2 mg/dL (0.2-1.0); TOTAL PROTEIN, SERUM 6.8 g/dL (6.4-8.2)
[2023-03-11 05:26] LABS: RBC,URINE NONE SEEN /HPF (0-2)
[2023-03-11 05:27] LABS: BACTERIA,URINE None seen /HPF (None Seen); MUCUS,URINE Few /LPF (None Seen); SQUAMOUS EPITHELIAL CELL,UR None Seen /HPF (None Seen); WBC,URINE NONE SEEN /HPF (0-3)
[2023-03-11 05:41] LABS: EOSINOPHILS % (MANUAL) 5 % (0-4); LYMPHOCYTES % (MANUAL) 61 % (16-48); MONOCYTES % (MANUAL) 6 % (0-11.0); NEUTROPHILS % (MANUAL) 28 (42-76)
--- NOTE | 2023-03-11 08:22 | NUR ---
REPORT GIVEN TO GIOVANI PRITCHARD
--- NOTE | 2023-03-11 10:34 | NUR ---
[facility] PICKED UP THE PT. AMBULATED WITH STEADY GAIT. PT IS NOT IN ACUTE DISTRESS.
[2023-03-11 10:37] VITALS: BP 133/89
== END 2023-03-11 10:38 ==
LOC: ER 02:44
DX: R45.851 Suicidal ideations (principal); F19.10 Other psychoactive substance abuse, uncomplicated; F32.A Depression, unspecified; F17.200 Nicotine dependence, unspecified, uncomplicated; Z20.822 Contact with and (suspected) exposure to COVID-19
CPT/HCPCS: 36415; 80048-TC; 80076-TC; 81001; 85025-TC; C9803; G0480

== ENCOUNTER 2023-03-13 04:00 | Emergency (ER) | payer BC, OTHER ==
[~2023-03-13] VITALS: Ht 180.3 cm; Wt 72.6 kg
[2023-03-13 04:25] VITALS: BP 110/62
--- NOTE | 2023-03-13 04:25 | NUR ---
CC OF DEPRESSION, THINKING OF TAKING ALOT OF MEDS TO CAUSE OD. PT IS ALERT, ORIENTED. ASKING HELP TO GET BETTER. CHANGED TO HOSPITAL GOWN. PLACED IN RM 18. VITALS CHECKED.
--- NOTE | 2023-03-13 04:26 | NUR ---
COVID AND URINE SWAB SENT TO LAB
[2023-03-13 05:37] LABS: BILIRUBIN,URINE NEGATIVE (NEGATIVE); COLOR,URINE YELLOW (YELLOW); LEUKOCYTE ESTERASE ,URINE NEGATIVE (NEGATIVE); NITRITE, URINE NEGATIVE (NEGATIVE); PROTEIN,URINE NEGATIVE (NEGATIVE); UGLUCOSE NEGATIVE (NEGATIVE); UROBILINOGEN,URINE 0.2 EU/dL (0.2)
[2023-03-13 05:38] LABS: BASOPHILS % (AUTO) 0.7 % (0.0-2.0); EOSINOPHILS % (AUTO) 1.2 % (0.0-6.0); HEMATOCRIT 36 % (39-51); HEMOGLOBIN 12.3 g/dL (13.5-17.5); LYMPHOCYTES # (AUTO) 2.3 K/uL (0.8-4.8); LYMPHOCYTES % (AUTO) 48.2 % (20.0-44.0); MEAN CORPUSCULAR HGB CONC 34 g/dl (31.0-36.0); MEAN CORPUSCULAR VOLUME 91 fL (80-96); MONOCYTES # (AUTO) 0.8 K/uL (0.1-1.30); MONOCYTES % (AUTO) 17.5 % (2.0-12.0); NEUTROPHILS # (AUTO) 1.6 K/uL (1.8-8.9); NEUTROPHILS % (AUTO) 32.4 % (43.0-81.0); PLATELET COUNT (AUTO) 184 K/uL (150-450); RED BLOOD CELL COUNT(AUTO) 3.95 MIL/uL (4.5-6.0); WHITE BLOOD COUNT (AUTO) 4.8 K/uL (4.3-11.0)
[2023-03-13 06:32] LABS: CALCIUM, SERUM 8.6 mg/dL (8.5-10.1); CARBON DIOXIDE 31 mmol/L (21-32); CHLORIDE 104 mmol/L (98-107); CREATININE 1.2 mg/dL (0.6-1.3); GLUCOSE 104 mg/dL (74-106); POTASSIUM 3.9 mmol/L (3.5-5.1); SODIUM SERUM 139 mmol/L (136-145); UREA NITROGEN, BLOOD 12 mg/dL (7-18)
[2023-03-13 06:38] LABS: ALANINE AMINOTRANSFERASE 24 U/L (12-78); ALBUMIN 2.6 g/dL (3.4-5.0); ALCOHOL, BLOOD < 3 mg/dL (0-10); ALKALINE PHOSPHATASE 58 U/L (46-116); ASPARTATE AMINOTRANSFERASE 17 U/L (15-37); BILIRUBIN,TOTAL 0.1 mg/dL (0.2-1.0); TOTAL PROTEIN, SERUM 5.4 g/dL (6.4-8.2)
--- NOTE | 2023-03-13 08:47 | NUR ---
CALLED AGILE PROJECT MANAGER AND LEFT VOICEMAIL
[2023-03-13 09:20] LABS: EOSINOPHILS % (MANUAL) 1 % (0-4); LYMPHOCYTES % (MANUAL) 43 % (16-48); MONOCYTES % (MANUAL) 14 % (0-11.0); NEUTROPHILS % (MANUAL) 42 (42-76)
--- NOTE | 2023-03-13 10:30 | NUR ---
FAXED FACESHEET AND CLINICALS TO [facility]
--- NOTE | 2023-03-13 13:27 | NUR ---
NADIR was the patient who checked into the ER for depression Rx: Bebe. Patient reports to be feeling suisadal. He resides at [address] [place] [address] with his girlfriend. Patient denies abusing drugs or alcohol. Faxed pt's clinicals to [facility] to have the patient transferred to [facility]. Addendum: 03/13/23 at 1335 by ANUSHA [facility] declined the patient since he left that hospital earlier the same day. Awaiting an approval by [facility].
--- NOTE | 2023-03-13 13:47 | NUR ---
Patient is awaiting approval from [facility].
--- NOTE | 2023-03-13 13:48 | NUR ---
LYLE [phone] FROM [facility] CALLED WITH ACCEPTANCE INFO. PATIENT ACCEPTED AT [facility] UNDER DR. MENDIETA. NUMBER FOR REPORT IS [phone].
--- NOTE | 2023-03-13 13:49 | NUR ---
[facility]
--- NOTE | 2023-03-13 13:54 | NUR ---
SPOKE WITH IVANA FROM [facility] AND ARRANGED BLS TRANSPORT TO [facility]. ETA IS 60 MIN
--- NOTE | 2023-03-13 14:16 | NUR ---
CONTACTED [facility] FOR REPORT SPOKED WITH CHARGE NURSE MARTINEZ AND THAT THEY DON'T HAVE STAFF NURSE TO ATTEND TO PATIENT. SHE WILL CALL BACK POSSIBLY AT 1999.
--- NOTE | 2023-03-13 14:17 | NUR ---
[facility]
--- NOTE | 2023-03-13 14:50 | NUR ---
LYLE [phone] FROM [facility] CALLED WITH AND STATED TO SEND PT TO COUNTS INCLUDE 234 BEDS AT THE [facility]. ADMIN AWARE
--- NOTE | 2023-03-13 14:54 | NUR ---
SET UP BLS TRANSPORT WITH [facility]. ETA IS 60 MIN
--- NOTE | 2023-03-13 16:32 | NUR ---
[facility] ARRIVED FOR TRANSPORT BUT PT NOT IN ROOM.
== END 2023-03-13 17:51 | disposition left against medical advice (07) ==
LOC: ER 04:03
DX: R45.851 Suicidal ideations (principal); F32.A Depression, unspecified; F17.210 Nicotine dependence, cigarettes, uncomplicated; Z20.822 Contact with and (suspected) exposure to COVID-19
CPT/HCPCS: 36415; 80048-TC; 80076-TC; 85025-TC; C9803; G0480

== ENCOUNTER 2023-03-14 19:39 | Emergency (ER) | payer BC, OTHER ==
--- NOTE | 2023-03-14 21:00 | NUR ---
called to triage not in waiting room
== END 2023-03-14 23:00 | disposition left against medical advice (07) ==
LOC: ER 19:42
DX: Z53.21 Procedure and treatment not carried out due to patient leaving prior to being seen by health care provider (principal)

== ENCOUNTER 2023-03-19 02:20 | Emergency (ER) | payer BC, OTHER ==
[~2023-03-19] VITALS: Ht 180.3 cm; Wt 72.6 kg
--- NOTE | 2023-03-19 03:50 | NUR ---
BIBSELF FOR DEPRESSION AFTER ARGUMENT WITH GIRLFRIEND
--- NOTE | 2023-03-19 03:55 | NUR ---
BLOOD WORK COLLECTED BY BENCH WORKER
--- NOTE | 2023-03-19 04:00 | NUR ---
URINE COLLECTED, SENT TO LAB
[2023-03-19 04:07] LABS: BASOPHILS % (AUTO) 0.8 % (0.0-2.0); EOSINOPHILS % (AUTO) 0.5 % (0.0-6.0); HEMATOCRIT 38 % (39-51); HEMOGLOBIN 12.7 g/dL (13.5-17.5); LYMPHOCYTES % (AUTO) 52.4 % (20.0-44.0); MEAN CORPUSCULAR HGB CONC 33 g/dl (31.0-36.0); MEAN CORPUSCULAR VOLUME 92 fL (80-96); MONOCYTES # (AUTO) 0.5 K/uL (0.1-1.30); MONOCYTES % (AUTO) 13.9 % (2.0-12.0); NEUTROPHILS # (AUTO) 1.3 K/uL (1.8-8.9); NEUTROPHILS % (AUTO) 32.4 % (43.0-81.0); PLATELET COUNT (AUTO) 224 K/uL (150-450); RED BLOOD CELL COUNT(AUTO) 4.11 MIL/uL (4.5-6.0); WHITE BLOOD COUNT (AUTO) 3.9 K/uL (4.3-11.0)
--- NOTE | 2023-03-19 04:10 | NUR ---
COVID SWAB COLLECTED AND SENT TO LAB.
[2023-03-19 04:15] LABS: CALCIUM, SERUM 8.6 mg/dL (8.5-10.1); CARBON DIOXIDE 29 mmol/L (21-32); CHLORIDE 103 mmol/L (98-107); CREATININE 1.3 mg/dL (0.6-1.3); GLUCOSE 115 mg/dL (74-106); POTASSIUM 3.8 mmol/L (3.5-5.1); SODIUM SERUM 141 mmol/L (136-145); UREA NITROGEN, BLOOD 14 mg/dL (7-18)
[2023-03-19 04:21] LABS: ALANINE AMINOTRANSFERASE 32 U/L (12-78); ALBUMIN 3.3 g/dL (3.4-5.0); ALCOHOL, BLOOD 3 mg/dL (0-10); ALKALINE PHOSPHATASE 69 U/L (46-116); ASPARTATE AMINOTRANSFERASE 28 U/L (15-37); BILIRUBIN,DIRECT 0.1 mg/dL (0.0-0.2); BILIRUBIN,TOTAL 0.3 mg/dL (0.2-1.0); TOTAL PROTEIN, SERUM 6.6 g/dL (6.4-8.2)
[2023-03-19 05:03] LABS: BILIRUBIN,URINE NEGATIVE (NEGATIVE); COLOR,URINE YELLOW (YELLOW); LEUKOCYTE ESTERASE ,URINE NEGATIVE (NEGATIVE); NITRITE, URINE NEGATIVE (NEGATIVE); PROTEIN,URINE TRACE mg/dl (NEGATIVE); UGLUCOSE NEGATIVE (NEGATIVE)
--- NOTE | 2023-03-19 06:45 | NUR ---
DR. BONILLA CARO AWARE
--- NOTE | 2023-03-19 06:46 | NUR ---
Pt no longer SI. Patient discharged to home in stable condition. Written and verbal after care instructions given. Patient verbalizes understanding of instruction.
[2023-03-19 07:36] VITALS: BP 110/75; TEMP 98
== END 2023-03-19 07:36 | disposition home or self-care (01) ==
LOC: ER 02:36
DX: F32.A Depression, unspecified (principal); F17.200 Nicotine dependence, unspecified, uncomplicated; Z20.822 Contact with and (suspected) exposure to COVID-19
CPT/HCPCS: 36415; 80048-TC; 80076-TC; 85025-TC; C9803; G0480

== ENCOUNTER 2023-09-23 20:54 | Emergency (ER) | payer BC, MEDICAID ==
[~2023-09-23] VITALS: Ht 162.6 cm; Wt 74.8 kg
[2023-09-23 22:00] LABS: BASOPHILS % (AUTO) 0.6 % (0.0-2.0); EOSINOPHILS # (AUTO) 0.1 K/uL (0.0-0.7); EOSINOPHILS % (AUTO) 1.1 % (0.0-6.0); HEMATOCRIT 35 % (39-51); HEMOGLOBIN 11.8 g/dL (13.5-17.5); LYMPHOCYTES # (AUTO) 2.1 K/uL (0.8-4.8); LYMPHOCYTES % (AUTO) 37.8 % (20.0-44.0); MEAN CORPUSCULAR HEMOGLOBIN 32 PG (26.0-33.0); MEAN CORPUSCULAR HGB CONC 34 g/dl (31.0-36.0); MEAN CORPUSCULAR VOLUME 92 fL (80-96); MONOCYTES # (AUTO) 0.7 K/uL (0.1-1.30); NEUTROPHILS # (AUTO) 2.7 K/uL (1.8-8.9); NEUTROPHILS % (AUTO) 47.5 % (43.0-81.0); PLATELET COUNT (AUTO) 206 K/uL (150-450); RED BLOOD CELL COUNT(AUTO) 3.75 MIL/uL (4.5-6.0); WHITE BLOOD COUNT (AUTO) 5.7 K/uL (4.3-11.0)
[2023-09-23 22:13] LABS: INR 0.89 (0.91-1.10); PARTIAL THROMBOPLASTIN TIME 24.2 SEC (24.3-34.3); PROTHROMBIN TIME 9.5 SECS (9.2-11.1)
[2023-09-23 22:15] LABS: CALCIUM, SERUM 8.4 mg/dL (8.5-10.1); CARBON DIOXIDE 31 mmol/L (21-32); CHLORIDE 102 mmol/L (98-107); GLUCOSE 78 mg/dL (74-106); POTASSIUM 3.7 mmol/L (3.5-5.1); SODIUM SERUM 137 mmol/L (136-145); UREA NITROGEN, BLOOD 12 mg/dL (7-18)
[2023-09-23 22:28] LABS: ALANINE AMINOTRANSFERASE 28 U/L (12-78); ALBUMIN 2.6 g/dL (3.4-5.0); ALKALINE PHOSPHATASE 76 U/L (46-116); ASPARTATE AMINOTRANSFERASE 25 U/L (15-37); BILIRUBIN,DIRECT 0.1 mg/dL (0.0-0.2); BILIRUBIN,TOTAL 0.2 mg/dL (0.2-1.0); NT-PRO BNP 84 pg/mL (0-125)
[2023-09-24 02:00] VITALS: BP 135/98; TEMP 98.3; O2SAT 100
== END 2023-09-24 02:00 | disposition home or self-care (01) ==
LOC: ER 21:09
DX: R60.0 Localized edema (principal); F32.A Depression, unspecified; F17.200 Nicotine dependence, unspecified, uncomplicated; Z79.899 Other long term (current) drug therapy
CPT/HCPCS: 36415; 71045-TC; 80048-TC; 80076-TC; 83880; 84484-TC; 85025-TC; 85730-TC; 93970-TC

== ENCOUNTER 2025-09-15 01:15 | Emergency (ER) | payer BC, MEDICAID ==
[~2025-09-15] VITALS: Ht 180.3 cm; Wt 79.4 kg
[2025-09-15 03:31] LABS: PLATELET COUNT (AUTO) 305 K/uL (150-450); RED BLOOD CELL COUNT(AUTO) 4.64 MIL/uL (4.5-6.0); RED CELL DISTRIBUTION WIDTH 14.2 % (11.5-15.0); WHITE BLOOD COUNT (AUTO) 7.5 K/uL (4.3-11.0)
[2025-09-15 03:37] LABS: APPEARANCE,URINE CLEAR (CLEAR); BLOOD, URINE NEGATIVE Ery/uL (NEGATIVE); LEUKOCYTE ESTERASE ,URINE NEGATIVE (NEGATIVE); NITRITE, URINE NEGATIVE (NEGATIVE); UGLUCOSE NEGATIVE (NEGATIVE)
[2025-09-15 03:40] LABS: CALCIUM, SERUM 9.2 mg/dL (8.5-10.1); CREATININE 1.2 mg/dL (0.6-1.3); SODIUM SERUM 140 mmol/L (136-145); UREA NITROGEN, BLOOD 20 mg/dL (7-18)
[2025-09-15 03:45] LABS: ALCOHOL, BLOOD < 3 mg/dL (0-10); ASPARTATE AMINOTRANSFERASE 20 U/L (15-37); TOTAL PROTEIN, SERUM 8.7 g/dL (6.4-8.2)
[2025-09-15 03:48] LABS: AMPHETAMINE, URINE POSITIVE (NEGATIVE); BARBITURATE, URINE NEGATIVE (NEGATIVE); BENZODIAZEPINE, URINE NEGATIVE (NEGATIVE); CANNABINOID, URINE POSITIVE (NEGATIVE); COCCAINE, URINE NEGATIVE (NEGATIVE); OPIATE, URINE NEGATIVE (NEGATIVE)
[2025-09-15 11:00] VITALS: BP 124/77; TEMP 98.7; O2SAT 99
[2025-09-16] MEDS ORDERED: IBUP-1490 PO (19:16)
[2025-09-16] MEDS ORDERED: CEPH500C2 PO (19:16)
[2025-09-16] MEDS ORDERED: CYCL10TA9 PO (19:16)
== END 2025-09-15 11:17 ==
LOC: ER 01:20
DX: F32.A Depression, unspecified (principal); F17.210 Nicotine dependence, cigarettes, uncomplicated; F15.90 Other stimulant use, unspecified, uncomplicated; Z59.00 Homelessness unspecified; Z02.89 Encounter for other administrative examinations; Z79.899 Other long term (current) drug therapy
CPT/HCPCS: 36415; 80048-TC; 80076-TC; 85025-TC; G0480

== ENCOUNTER 2025-09-16 17:34 | Emergency (ER) | payer BC, MEDICAID ==
[~2025-09-16] VITALS: Ht 180.3 cm; Wt 68.9 kg
[2025-09-16] MEDS ORDERED: CYCLOBENZAPRINE 10 MG TABLET ONE (18:40)
[2025-09-16] MEDS ORDERED: IBUPROFEN 600 MG TABLET ONE (18:41)
[2025-09-16] MEDS: IBUPROFEN 600 MG TABLET PO ONE (18:43)
[2025-09-16] MEDS: CYCLOBENZAPRINE 10 MG TABLET PO ONE (18:43)
[2025-09-16 19:00] LABS: APPEARANCE,URINE CLEAR (CLEAR); BLOOD, URINE Negative Ery/uL (NEGATIVE); LEUKOCYTE ESTERASE ,URINE Negative (NEGATIVE); NITRITE, URINE NEGATIVE (NEGATIVE); UGLUCOSE Negative (NEGATIVE)
[2025-09-16 19:02] LABS: ADD URINE CULTURE YES; SQUAMOUS EPITHELIAL CELL,UR Moderate /HPF (None Seen)
[2025-09-16] MEDS ORDERED: CYCL10TA9 PO (19:16)
[2025-09-16] MEDS ORDERED: IBUP-1490 PO (19:16)
[2025-09-16] MEDS ORDERED: CEPH500C2 PO (19:16)
[2025-09-16 19:24] VITALS: BP 137/87; TEMP 98.6; O2SAT 100
== END 2025-09-16 19:26 | disposition home or self-care (01) ==
LOC: ER 18:01
DX: M54.50 Low back pain, unspecified (principal); F17.210 Nicotine dependence, cigarettes, uncomplicated; F15.90 Other stimulant use, unspecified, uncomplicated; Z79.899 Other long term (current) drug therapy
CPT/HCPCS: 81001; 87086-TC